=== PATIENT | female | born 1955 | race Caucasian/White ===

== ENCOUNTER 2017-01-25 12:19 | Emergency (ER) | payer MEDICARE ==
[~2017-01-25] VITALS: Ht 160 cm; Wt 111.1 kg
[~2017-01-25 12:19] MED LIST: ALAVERT10 M1; AMITRIPTYLINE25 MG; AMOXICILLIN500 M2 PO; ASPIRIN CHILDRE81 MG; CYMBALTA60 MG; DAYPRO600 M1 PO; DEPAKOTE ER500 MG; ERGOCALCIFER50000 IU; FLEXERIL10 MG PO; FLOVENT 110 M110 MCG; HYDROCODONE BIT1 T11 PO; JANUVIA100 MG; LANTUS100 U/ML SC; LEVEMIR10 ML SC; LEVOFLOXACIN500 MG PO; LISINOPRIL/HCTZ1 TA4; LISINOPRIL20 MG; METFORMIN500 MG; METOPROLOL SR50 MG; MOTRIN800 MG PO; Motrin,Rufen800 MG PO; OYSTER SHELL C500 M3; OYSTER SHELL W/1 TA1 PO; PENICILLIN VK500 MG PO; PERCOCET 325 MG1 TA2 PO; PHENADOZ PO; PHENERGAN25 M3 PO; PRAVACHOL40 MG; PREDNICOT20 MG PO; PRILOSEC20 MG PO; PROAIR HFA0.09 MG/AC; PROVIGIL200 MG; ROBAXIN750 MG PO; SYNTHROID,LEV125 MCG; TRAMADOL HCL50 MG PO; VISTARIL25 M1; ZITHROMAX Z PA250 MG PO; ZYRTEC10 MG PO
[2017-01-25] MEDS ORDERED: LIDEX 0.05% CRE15 GM T (13:07)
[2017-01-25] MEDS ORDERED: CEPHALEXIN500 M1 PO (13:07)
== END 2017-01-25 13:39 | disposition home or self-care (01) ==
LOC: ED 12:19
DX: S50.862A Insect bite (nonvenomous) of left forearm, initial encounter (principal); S50.861A Insect bite (nonvenomous) of right forearm, initial encounter; S20.369A Insect bite (nonvenomous) of unspecified front wall of thorax, initial encounter; L03.114 Cellulitis of left upper limb; N61.0 Mastitis without abscess; Z79.899 Other long term (current) drug therapy; W57.XXXA Bitten or stung by nonvenomous insect and other nonvenomous arthropods, initial encounter; Y93.9 Activity, unspecified; Y92.9 Unspecified place or not applicable; Y99.9 Unspecified external cause status

== ENCOUNTER → 2017-04-14 | Outpatient (CLI) | payer MEDICARE ==
[~2017-04-14] MED LIST changes: +CEPHALEXIN500 M1 PO; +LIDEX 0.05% CRE15 GM T
== END | disposition home or self-care (01) ==
LOC: US 14:00
DX: R60.0 Localized edema (principal); L98.9 Disorder of the skin and subcutaneous tissue, unspecified

== ENCOUNTER → 2017-12-23 | Outpatient (CLI) | payer MEDICARE | END | disposition home or self-care (01) | LOC: MAMMO 12-02 08:40 | DX: Z12.31 Encounter for screening mammogram for malignant neoplasm of breast (principal) ==

== ENCOUNTER → 2019-02-09 | Outpatient (CLI) | payer OTHER | END | disposition home or self-care (01) | LOC: MAMMO 08:00 | DX: Z12.31 Encounter for screening mammogram for malignant neoplasm of breast (principal) ==

== ENCOUNTER 2020-05-02 15:02 | Emergency (ER) | payer OTHER ==
[~2020-05-02] VITALS: Ht 160 cm; Wt 111.1 kg
[2020-05-02] MEDS ORDERED: VIBRAMYCIN100 MG PO (16:26)
== END 2020-05-02 16:55 | disposition home or self-care (01) ==
LOC: ED 15:02
DX: S30.861A Insect bite (nonvenomous) of abdominal wall, initial encounter (principal); Z79.899 Other long term (current) drug therapy; Z79.4 Long term (current) use of insulin; W57.XXXA Bitten or stung by nonvenomous insect and other nonvenomous arthropods, initial encounter; Y93.89 Activity, other specified; Y92.89 Other specified places as the place of occurrence of the external cause; Y99.8 Other external cause status

== ENCOUNTER → 2020-05-22 | Outpatient (CLI) | payer OTHER ==
[~2020-05-22] MED LIST changes: +VIBRAMYCIN100 MG PO
== END | disposition home or self-care (01) ==
LOC: MAMMO 17:09
PROVIDERS: ATTEND Internal Medicine
DX: Z12.31 Encounter for screening mammogram for malignant neoplasm of breast (principal)

== ENCOUNTER 2021-03-19 16:11 | Emergency (ER) | payer OTHER ==
[~2021-03-19] VITALS: Wt 111.1 kg
== END 2021-03-19 20:30 | disposition home or self-care (01) ==
LOC: ED 16:11
DX: M25.561 Pain in right knee (principal); Z79.899 Other long term (current) drug therapy

== ENCOUNTER → 2021-08-15 | Outpatient (CLI) | payer OTHER ==
[2021-08-15 09:35] LABS: BASO # 0.1 10*3/uL (0.0-0.1); BASO % 0.7 % (0.0-1.0); EOS # 0.1 10*3/uL (0.0-0.4); EOS % 1.6 % (1.0-4.0); HEMATOCRIT 44.1 % (37.0-47.0); LYMPH # 1.2 10*3/uL (1.3-4.4); LYMPH % 17.1 % (27.0-41.0); MEAN CELL VOLUME 87.7 fl (81.0-99.0); MEAN CORPUSCULAR HGB 28.4 pg (27.0-31.0); MEAN CORPUSCULAR HGB CONC 32.4 g/dl (33.0-37.0); MEAN PLATELET VOLUME 10.7 fl (9.6-12.3); MONO # 0.5 10*3/uL (0.1-1.0); MONO % 7.6 % (3.0-9.0); NEUT # 4.9 10*3/uL (2.3-7.9); NEUT % 72.3 % (47.0-73.0); PLATELET COUNT AUTOMATED 239 10*3/uL (130-400); RED BLOOD COUNT 5.03 10*6/uL (4.10-5.10); RED CELL DISTRI WIDTH 14.7 % (0-14.5); WHITE BLOOD COUNT 6.7 10*3/uL (4.8-10.8)
[2021-08-15 09:53] LABS: BUN 12 mg/dl (7-24); CHLORIDE 98 mmol/L (98-107); CREATININE 0.65 mg/dL (0.55-1.02); LIPASE 138 U/L (73-393); POTASSIUM 3.5 mmol/L (3.5-5.1); SGOT/AST 13 IU/L (3-35); SGPT/ALT 27 U/L (12-78); SODIUM 135 mmol/L (136-145); TOTAL PROTEIN 7.6 gm/dL (6.4-8.2)
[2021-08-15 10:04] LABS: ALKALINE PHOSPHATASE 162 U/L (45-117); FREE T4 1.02 ng/dl (0.76-1.46)
[2021-08-16 12:07] LABS: CREATININE,URINE 41.8 mg/dL (Not Estab.); MICRO ALBUMIN/CRE RATIO <7 (0-29)
== END | disposition home or self-care (01) ==
LOC: LAB 08:19 → MAMMO 08:30
PROVIDERS: ATTEND Internal Medicine
DX: Z12.31 Encounter for screening mammogram for malignant neoplasm of breast (principal); E11.65 Type 2 diabetes mellitus with hyperglycemia

== ENCOUNTER 2021-09-05 17:46 | Emergency (ER) | payer OTHER ==
[~2021-09-05] VITALS: Wt 115.7 kg
[2021-09-05 18:55] LABS: BILIRUBIN Negative (Negative); BLOOD Negative (Negative); CLARITY Clear (Clear); COLOR Yellow (Yellow); GLUCOSE 3+ (Negative); KETONE Negative (Negative); LEUKO ESTERASE Negative (Negative); NITRITE Negative (Negative); PH 5.5 (4.5-8.0); SPECIFIC GRAVITY >= 1.030 (1.001-1.030)
[2021-09-05 19:24] LABS: BACTERIA TRACE; EPITHELIAL CELLS 0-2; WBC 0-2 wbc/hpf (0-5); YEAST 1+
[2021-09-05] MEDS ORDERED: NAPROSYN500 MG PO (19:38)
== END 2021-09-05 19:39 | disposition home or self-care (01) ==
LOC: ED 17:46
PROVIDERS: Physician Assistant
DX: S39.012A Strain of muscle, fascia and tendon of lower back, initial encounter (principal); Z79.899 Other long term (current) drug therapy; Z79.82 Long term (current) use of aspirin; Z98.890 Other specified postprocedural states; Z90.89 Acquired absence of other organs; Z90.49 Acquired absence of other specified parts of digestive tract; W22.8XXA Striking against or struck by other objects, initial encounter; Y93.89 Activity, other specified; Y92.89 Other specified places as the place of occurrence of the external cause; Y99.8 Other external cause status

== ENCOUNTER 2021-09-13 18:55 | Inpatient (IN) | payer OTHER ==
[~2021-09-13] VITALS: Ht 160 cm; Wt 122.0 kg
[~2021-09-13 18:55] MED LIST changes: +NAPROSYN500 MG PO
[2021-09-13 19:12] VITALS: BP 131/76
[2021-09-13 19:49] LABS: BASO # 0.1 10*3/uL (0.0-0.1); BASO % 0.5 % (0.0-1.0); EOS # 0.1 10*3/uL (0.0-0.4); EOS % 0.9 % (1.0-4.0); HEMATOCRIT 42.7 % (37.0-47.0); LYMPH # 1.1 10*3/uL (1.3-4.4); MEAN CELL VOLUME 88.4 fl (81.0-99.0); MEAN CORPUSCULAR HGB CONC 31.6 g/dl (33.0-37.0); MONO # 0.6 10*3/uL (0.1-1.0); MONO % 6.4 % (3.0-9.0); NEUT # 7.5 10*3/uL (2.3-7.9); NEUT % 79.5 % (47.0-73.0); PLATELET COUNT AUTOMATED 321 10*3/uL (130-400); RED BLOOD COUNT 4.83 10*6/uL (4.10-5.10); RED CELL DISTRI WIDTH 15.4 % (0-14.5); WHITE BLOOD COUNT 9.5 10*3/uL (4.8-10.8)
[2021-09-13 20:14] LABS: ALKALINE PHOSPHATASE 460 U/L (45-117); BUN 17 mg/dl (7-24); CHLORIDE 104 mmol/L (98-107); CREATININE 0.73 mg/dL (0.55-1.02); POTASSIUM 3.8 mmol/L (3.5-5.1); SGOT/AST 38 IU/L (3-35); SGPT/ALT 61 U/L (12-78); SODIUM 140 mmol/L (136-145); TOTAL PROTEIN 7.8 gm/dL (6.4-8.2)
[2021-09-13 21:26] LABS: BILIRUBIN Negative (Negative); BLOOD Negative (Negative); CLARITY Clear (Clear); COLOR Yellow (Yellow); GLUCOSE 3+ (Negative); KETONE Negative (Negative); LEUKO ESTERASE Negative (Negative); NITRITE Negative (Negative); SPECIFIC GRAVITY >= 1.030 (1.001-1.030)
[2021-09-13 21:35] LABS: BACTERIA TRACE; EPITHELIAL CELLS 0-2; WBC 0-2 wbc/hpf (0-5); YEAST 1+
[2021-09-14] VITALS (7 sets, daily range): BP systolic 102–144; BP diastolic 42–84
[2021-09-14] MEDS ORDERED: CEPHALEXIN500 M1 PO (03:12)
[2021-09-14] MEDS ORDERED: JARDIANCE25 MG PO (05:17)
[2021-09-14] MEDS ORDERED: TRADJENTA5 M1 PO (05:17)
[2021-09-14] MEDS ORDERED: DIVALPROEX SOD500 MG PO (05:18)
[2021-09-14] MEDS ORDERED: ATORVASTATIN CA40 M1 PO (05:23)
[2021-09-14] MEDS ORDERED: LOSARTAN-HCTZ1 EAC1 PO (05:24)
[2021-09-14] MEDS ORDERED: VENLAFAXINE HYD75 M3 PO (05:25)
[2021-09-14] MEDS ORDERED: LEVOTHYROXINE125 MCG PO (05:26)
[2021-09-14] MEDS ORDERED: METOPROLOL TART50 M1 PO (05:26)
[2021-09-15] VITALS: BP 130/70
[2021-09-15 06:43] LABS: BASO # 0.1 10*3/uL (0.0-0.1); BASO % 0.8 % (0.0-1.0); EOS # 0.1 10*3/uL (0.0-0.4); EOS % 1.5 % (1.0-4.0); HEMATOCRIT 40.5 % (37.0-47.0); LYMPH # 1.5 10*3/uL (1.3-4.4); LYMPH % 18.8 % (27.0-41.0); MEAN CELL VOLUME 90.2 fl (81.0-99.0); MEAN CORPUSCULAR HGB 28.5 pg (27.0-31.0); MEAN CORPUSCULAR HGB CONC 31.6 g/dl (33.0-37.0); MONO # 0.5 10*3/uL (0.1-1.0); MONO % 6.8 % (3.0-9.0); NEUT # 5.7 10*3/uL (2.3-7.9); NEUT % 71.2 % (47.0-73.0); PLATELET COUNT AUTOMATED 296 10*3/uL (130-400); RED BLOOD COUNT 4.49 10*6/uL (4.10-5.10); RED CELL DISTRI WIDTH 15.4 % (0-14.5)
[2021-09-15 06:46] LABS: ALKALINE PHOSPHATASE 319 U/L (45-117); BUN 14 mg/dl (7-24); CHLORIDE 102 mmol/L (98-107); CREATININE 0.59 mg/dL (0.55-1.02); POTASSIUM 3.8 mmol/L (3.5-5.1); SGOT/AST 14 IU/L (3-35); SGPT/ALT 35 U/L (12-78); SODIUM 137 mmol/L (136-145); TOTAL PROTEIN 7.1 gm/dL (6.4-8.2)
[2021-09-15 09:49] LABS: VITAMIN D, 25-HYDROXY 47.8 ng/mL (30-100)
[2021-09-15 12:00] VITALS: BP 145/71
[2021-09-15 16:00] VITALS: BP 136/69
[2021-09-15 20:00] VITALS: BP 124/69
[2021-09-16] VITALS (8 sets, daily range): BP systolic 106–155; BP diastolic 50–71
[2021-09-16 06:12] LABS: ALKALINE PHOSPHATASE 283 U/L (45-117); BUN 13 mg/dl (7-24); CHLORIDE 101 mmol/L (98-107); CREATININE 0.54 mg/dL (0.55-1.02); POTASSIUM 3.8 mmol/L (3.5-5.1); SGOT/AST 11 IU/L (3-35); SGPT/ALT 29 U/L (12-78); SODIUM 137 mmol/L (136-145)
[2021-09-16 06:37] LABS: BASO # 0.1 10*3/uL (0.0-0.1); BASO % 0.8 % (0.0-1.0); EOS # 0.1 10*3/uL (0.0-0.4); EOS % 1.6 % (1.0-4.0); HEMATOCRIT 41.2 % (37.0-47.0); LYMPH # 1.5 10*3/uL (1.3-4.4); LYMPH % 17.2 % (27.0-41.0); MEAN CELL VOLUME 90.2 fl (81.0-99.0); MEAN CORPUSCULAR HGB 27.8 pg (27.0-31.0); MEAN CORPUSCULAR HGB CONC 30.8 g/dl (33.0-37.0); MEAN PLATELET VOLUME 10.1 fl (9.6-12.3); MONO # 0.8 10*3/uL (0.1-1.0); MONO % 8.7 % (3.0-9.0); NEUT # 6.1 10*3/uL (2.3-7.9); NEUT % 70.4 % (47.0-73.0); PLATELET COUNT AUTOMATED 302 10*3/uL (130-400); RED BLOOD COUNT 4.57 10*6/uL (4.10-5.10); RED CELL DISTRI WIDTH 15.8 % (0-14.5); WHITE BLOOD COUNT 8.7 10*3/uL (4.8-10.8)
[2021-09-17] VITALS: BP 125/50
[2021-09-17 06:09] LABS: BUN 14 mg/dl (7-24); CHLORIDE 102 mmol/L (98-107); POTASSIUM 4.1 mmol/L (3.5-5.1); SODIUM 138 mmol/L (136-145)
[2021-09-17 08:00] VITALS: BP 140/90
[2021-09-17 12:00] VITALS: BP 106/46
[2021-09-17 16:00] VITALS: BP 117/64
[2021-09-17 20:00] VITALS: BP 124/57
[2021-09-18] VITALS: BP 112/63
[2021-09-18 08:00] VITALS: BP 110/71
[2021-09-18 12:00] VITALS: BP 116/70
[2021-09-18 15:51] VITALS: BP 121/57
[2021-09-18 20:00] VITALS: BP 117/59
[2021-09-19] VITALS: BP 127/64
[2021-09-19 08:00] VITALS: BP 117/42
[2021-09-19] MEDS ORDERED: CARAFATE1 G1 PO (10:29)
[2021-09-19] MEDS ORDERED: OMEPRAZOLE40 MG PO (10:29)
[2021-09-19] MEDS ORDERED: ACYCLOVIR800 MG PO (10:31)
[2021-09-19] MEDS ORDERED: PREGABALIN50 MG PO (12:11)
== END 2021-09-19 19:47 | disposition home health service (06) | DRG 384 ==
LOC: ED 18:55 → EDHOLD 09-14 03:34 → 4E 09-14 03:34
PROVIDERS: Internal Medicine; ADMIT Internal Medicine; ATTEND Internal Medicine
PROC: 0DB68ZX Excision of Stomach, Via Natural or Artificial Opening Endoscopic, Diagnostic (ICD-10-PCS; principal; 2021-09-16)
DX: K25.3 Acute gastric ulcer without hemorrhage or perforation (principal); E44.0 Moderate protein-calorie malnutrition; M51.36 Other intervertebral disc degeneration, lumbar region; L98.9 Disorder of the skin and subcutaneous tissue, unspecified; W57.XXXA Bitten or stung by nonvenomous insect and other nonvenomous arthropods, initial encounter; E11.69 Type 2 diabetes mellitus with other specified complication; I10 Essential (primary) hypertension; K76.0 Fatty (change of) liver, not elsewhere classified; B02.9 Zoster without complications; E11.40 Type 2 diabetes mellitus with diabetic neuropathy, unspecified; K21.9 Gastro-esophageal reflux disease without esophagitis; F32.A Depression, unspecified; F41.9 Anxiety disorder, unspecified; E66.01 Morbid (severe) obesity due to excess calories; T14.8XXA Other injury of unspecified body region, initial encounter; Y93.9 Activity, unspecified; Y92.89 Other specified places as the place of occurrence of the external cause; Y99.8 Other external cause status; Z79.51 Long term (current) use of inhaled steroids; Z79.82 Long term (current) use of aspirin; Z79.899 Other long term (current) drug therapy

== ENCOUNTER 2022-05-20 15:00 | Emergency (ER) | payer OTHER ==
[~2022-05-20] VITALS: Wt 108.9 kg
[~2022-05-20 15:00] MED LIST changes: +ACYCLOVIR800 MG PO; +ATORVASTATIN CA40 M1 PO; +CARAFATE1 G1 PO; +DIVALPROEX SOD500 MG PO; +JARDIANCE25 MG PO; +LEVOTHYROXINE125 MCG PO; +LOSARTAN-HCTZ1 EAC1 PO; +METOPROLOL TART50 M1 PO; +OMEPRAZOLE40 MG PO; +PREGABALIN50 MG PO; +TRADJENTA5 M1 PO; +VENLAFAXINE HYD75 M3 PO
[2022-05-20] MEDS ORDERED: PREDNISONE20 M1 PO (21:41)
[2022-05-20] MEDS ORDERED: AMOX-CLAV 875-1 EACH PO (21:41)
== END 2022-05-20 23:07 | disposition home or self-care (01) ==
LOC: ED 15:00
DX: J06.9 Acute upper respiratory infection, unspecified (principal); Z20.822 Contact with and (suspected) exposure to COVID-19; J01.90 Acute sinusitis, unspecified; Z79.899 Other long term (current) drug therapy; Z79.82 Long term (current) use of aspirin; Z90.89 Acquired absence of other organs; Z90.49 Acquired absence of other specified parts of digestive tract

== ENCOUNTER → 2022-09-18 | Outpatient (CLI) | payer OTHER ==
[~2022-09-18] MED LIST changes: +AMOX-CLAV 875-1 EACH PO; +PREDNISONE20 M1 PO
== END | disposition home or self-care (01) ==
LOC: MAMMO 08-26 15:00
PROVIDERS: ATTEND Internal Medicine
DX: Z12.31 Encounter for screening mammogram for malignant neoplasm of breast (principal); R92.1 Mammographic calcification found on diagnostic imaging of breast

== ENCOUNTER → 2022-11-21 | Outpatient (CLI) | payer OTHER ==
[2022-11-21 14:42] LABS: BUN 13 mg/dl (9-23); CHLORIDE 97 mmol/L (98-107); POTASSIUM 3.4 mmol/L (3.4-5.1)
== END | disposition home or self-care (01) ==
LOC: LAB 13:50
PROVIDERS: ATTEND Internal Medicine
DX: E11.65 Type 2 diabetes mellitus with hyperglycemia (principal)

== ENCOUNTER 2022-12-19 18:36 | Emergency (ER) | payer OTHER ==
[~2022-12-19] VITALS: Ht 160 cm; Wt 110.2 kg
[2022-12-19] MEDS ORDERED: CYCLOBENZAPRINE10 MG PO (20:20)
[2022-12-19] MEDS ORDERED: NAPROSYN500 MG PO (20:20)
== END 2022-12-19 20:34 | disposition home or self-care (01) ==
LOC: ED 18:36
DX: S60.512A Abrasion of left hand, initial encounter (principal); S60.511A Abrasion of right hand, initial encounter; M54.2 Cervicalgia; M25.511 Pain in right shoulder; Z79.2 Long term (current) use of antibiotics; Z79.899 Other long term (current) drug therapy; Z79.4 Long term (current) use of insulin; Z98.890 Other specified postprocedural states; V48.5XXA Car driver injured in noncollision transport accident in traffic accident, initial encounter; Y93.I9 Activity, other involving external motion; Y92.488 Other paved roadways as the place of occurrence of the external cause; Y99.8 Other external cause status

== ENCOUNTER → 2023-08-13 | Outpatient (CLI) | payer OTHER ==
[~2023-08-13] MED LIST changes: +CYCLOBENZAPRINE10 MG PO
== END | disposition home or self-care (01) ==
LOC: US 14:30
PROVIDERS: ATTEND Internal Medicine
DX: N88.8 Other specified noninflammatory disorders of cervix uteri (principal); N95.0 Postmenopausal bleeding

== ENCOUNTER → 2023-11-12 | Outpatient (CLI) | payer OTHER | END | disposition home or self-care (01) | LOC: MAMMO 09:30 | PROVIDERS: ATTEND Internal Medicine | DX: Z12.31 Encounter for screening mammogram for malignant neoplasm of breast (principal); R92.333 Mammographic heterogeneous density, bilateral breasts; N64.89 Other specified disorders of breast ==

== ENCOUNTER → 2024-02-29 | Outpatient (CLI) | payer OTHER ==
[~2024-02-29] MED LIST changes: +ACYCLOVIR400 MG PO; +LUBRICANT EYE1 EAC1 OP
== END | disposition home or self-care (01) ==
LOC: RAD 01:37
PROVIDERS: ATTEND Internal Medicine
DX: M81.0 Age-related osteoporosis without current pathological fracture (principal); I73.9 Peripheral vascular disease, unspecified

== ENCOUNTER 2024-03-02 12:33 | Emergency (ER) | payer OTHER ==
[~2024-03-02] VITALS: Ht 160 cm; Wt 111.1 kg
[~2024-03-02 12:33] MED LIST changes: -ACYCLOVIR400 MG PO; -LUBRICANT EYE1 EAC1 OP
[2024-03-02] MEDS ORDERED: methylPREDNISolone sod succ 40 MG VIAL IV ONE (12:55)
[2024-03-02] MEDS ORDERED: ACYCLOVIR 400 MG TAB PO ONE (13:00)
[2024-03-02 13:07] LABS: BASO # 0.1 10*3/uL (0.0-0.1); BASO % 0.8 % (0.0-1.0); EOS # 0.1 10*3/uL (0.0-0.4); EOS % 1.5 % (1.0-4.0); LYMPH # 1.3 10*3/uL (1.3-4.4); LYMPH % 21.3 % (27.0-41.0); MEAN CELL VOLUME 88.3 fl (81.0-99.0); MEAN CORPUSCULAR HGB 28.5 pg (27.0-31.0); MEAN CORPUSCULAR HGB CONC 32.3 g/dl (33.0-37.0); MEAN PLATELET VOLUME 10.8 fl (9.6-12.3); MONO # 0.5 10*3/uL (0.1-1.0); MONO % 7.8 % (3.0-9.0); NEUT % 68.1 % (47.0-73.0); PLATELET COUNT AUTOMATED 199 10*3/uL (130-400); RED BLOOD COUNT 4.87 10*6/uL (4.10-5.10); RED CELL DISTRI WIDTH 14.4 % (0-14.5); WHITE BLOOD COUNT 5.9 10*3/uL (4.8-10.8)
[2024-03-02 13:30] LABS: ALKALINE PHOSPHATASE 179 U/L (46-116); BUN 14 mg/dl (9-23); CHLORIDE 100 mmol/L (98-107); POTASSIUM 3.7 mmol/L (3.4-5.1); SGPT/ALT 24 U/L (5-49); TOTAL PROTEIN 7.1 gm/dL (6.0-8.0); VALPROIC ACID (DEPAKENE) 6.7 ug/ml (50-100)
[2024-03-02] MEDS ORDERED: LUBRICANT EYE1 EAC1 OP (14:21)
[2024-03-02] MEDS ORDERED: PREDNISONE20 M1 PO (14:22)
[2024-03-02] MEDS ORDERED: ACYCLOVIR400 MG PO (14:22)
== END 2024-03-02 14:38 | disposition home or self-care (01) ==
LOC: ED 12:33
PROVIDERS: Emergency Medicine
DX: G51.0 Bell's palsy (principal); E11.9 Type 2 diabetes mellitus without complications; I10 Essential (primary) hypertension; F32.A Depression, unspecified; F41.9 Anxiety disorder, unspecified; J45.909 Unspecified asthma, uncomplicated; G43.909 Migraine, unspecified, not intractable, without status migrainosus; K21.9 Gastro-esophageal reflux disease without esophagitis; Z95.5 Presence of coronary angioplasty implant and graft; Z98.890 Other specified postprocedural states

== ENCOUNTER → 2024-07-06 | Outpatient (CLI) | payer OTHER ==
[~2024-07-06] MED LIST changes: +ACYCLOVIR400 MG PO; +LUBRICANT EYE1 EAC1 OP
== END | disposition home or self-care (01) ==
LOC: LAB 10:39
PROVIDERS: ATTEND Internal Medicine
DX: E11.65 Type 2 diabetes mellitus with hyperglycemia (principal)

== ENCOUNTER → 2024-08-01 | Outpatient (CLI) | payer OTHER | END | disposition home or self-care (01) | LOC: LAB 11:53 | PROVIDERS: ATTEND Internal Medicine | DX: B34.9 Viral infection, unspecified (principal); Z20.822 Contact with and (suspected) exposure to COVID-19 ==

== ENCOUNTER → 2024-12-21 | Outpatient (CLI) | payer OTHER | END | disposition home or self-care (01) | LOC: US 11:00 | PROVIDERS: ATTEND Podiatrist | DX: R60.0 Localized edema (principal) ==